=== PATIENT | male | born 1950 | race American Indian/Alaskan Native ===

== ENCOUNTER 2016-09-22 06:25 | Day surgery (SDC) | payer BC ==
[2016-09-15 11:03] VITALS: BMI 40.5
--- NOTE | 2016-09-22 07:14 | CP.SDSHP ---
Same Day Surgery H & P - History Proposed Procedure: Left knee manipulation under anesthesia Pre-Op Diagnosis: left knee arthrofibrosis - Previous Medical/Surgical History Cardiac: Hypertension Comments: medical clearance on chart Previous Surgical History: L TKR 06/23/2016 - Allergies Allergies: Allergies oxycodone HCl [From Percocet] Allergy (Severe, Verified 05/25/16 08:14) ANAPHYLAXIS - Physical Exam Mental Status: Alert & Oriented x3 Heart: WNL Lungs: WNL GI: WNL - {Optional Preform as Required} Ortho: Other (+ROM toes, sensation intact, calves soft NT neg homans) - Impression Impression: Left knee arthrofibrosis for PRAVIN Pt. Evaluated Today:Candidate for Anesthesia & Procedure: Yes Short Stay Discharge - Short Stay Discharge Admitting Diagnosis/Reason for Visit: STIFFNESS / OSTEOARTHRITIS Disposition: HOME/ ROUTINE Past Patient History - Past Medical History & Family History Past Medical History?: Yes - Past Social History Smoking Status: Never Smoked - CARDIAC Hx Cardiac Disorders: Yes (CAD, PTCA, MA) Hx Circulatory Problems: Yes (2009/STENT) Hx Heart Attack: Yes Hx Hypercholesterolemia: Yes Hx Hypertension: Yes Hx Peripheral Edema: Yes Other/Comment: cardiac stent - ENDOCRINE/METABOLIC Hx Endocrine Disorders: Yes Hx Diabetes Mellitus Type 2: Yes - HEMATOLOGICAL/ONCOLOGICAL Hx Blood Transfusions: Yes Hx Blood Transfusion Reaction: No - MUSCULOSKELETAL/RHEUMATOLOGICAL Hx Musculoskeletal Disorders: Yes Hx Arthritis: Yes (R TKR, L THR, L knee scope) Hx Back Pain: Yes Hx Degenerative Joint Disease: Yes Hx Falls: No Hx Fractures: Yes (RT FOOT GREAT TOE/NO SURGERY) Hx Herniated Disk: Yes (CERVICAL/LUMBAR) Hx Osteoarthritis: Yes - SURGICAL HISTORY Hx Surgeries: Yes Hx Arthroscopy: Yes (LEFT KNEE 2003) Hx Cardiac Catheterization: Yes Hx Coronary Stent: Yes Hx Herniorrhaphy: Yes (ABD.) Hx Joint Replacement: Yes (RT. KNEE/LEFT HIP LEFT KNEE) Hx Musculoskeletal Surgery: Yes (EXC. GROWTH LEFT MIDDLE FINGER) Hx Open Reduction Internal Fixation: Yes (LEFT HIP 1965) - ANESTHESIA Hx Anesthesia: Yes Hx Anesthesia Reactions: Yes (INFECTION AFTER SPINAL) Hx Malignant Hyperthermia: No Has any member of the family had a problem w/ anesthesia?: No
[2016-09-22] MEDS ORDERED: Midazolam 2 MG/2 ML VIAL ONE (07:31)
[2016-09-22] MEDS ORDERED: Lactated Ringer's 1,000 ML IV ONE ×3 (07:35→11:00)
[2016-09-22] MEDS ORDERED: Etomidate 20 mg/10ml Inj IV ONE (07:51)
[2016-09-22] MEDS ORDERED: Lactated Ringer's 1,000 ML IV SCH (08:15)
[2016-09-22] MEDS ORDERED: HYDROmorphone 0.5 mg/0.5 ml ISec IVP PRN ×2 (08:19→09:00)
[2016-09-22] MEDS ORDERED: HYDROmorphone 0.5 mg/0.5 ml ISec IVP ONE (09:45)
[2016-09-22 11:32] VITALS: BP 150/68; PULSE 75; RESP 18; TEMP 97; O2SAT 100
--- NOTE | 2016-09-22 11:44 | RAD ---
PROCEDURE: Left Knee Radiographs. HISTORY: Pain. COMPARISON: 06/21/2016 FINDINGS: BONES: Status post total knee replacement. No evidence of prosthesis loosening. No osseous fracture. JOINTS: As above JOINT EFFUSION: None. OTHER FINDINGS: None. IMPRESSION: Left total knee replacement. No acute abnormality.
--- NOTE | 2016-10-02 01:55 | PCM.SURG1 ---
Surgeon's Initial Post Op Note - Surgeon's Notes Surgeon: Sherri Alvarez MD Quality Control Operator: none Type of Anesthesia: General LMA Pre-Operative Diagnosis: Left knee arthrofibrosis/stiffness. after TKA 06/21/16 Operative Findings: Left knee arthrofibrosis/stiffness. after TKA 06/21/16. ROM pre-PRAVIN= 0-100. post-PRAVIN ROM= 0-130 Post-Operative Diagnosis: Left knee arthrofibrosis/stiffness. after TKA 06/21/16 Operation Performed: Left knee PRAVIN Specimen/Specimens Removed: specimen = none. implants= none. touniquet time= 0min. complications= none Estimated Blood Loss: EBL {In ML}: 0 Blood Products Given: N/A Drains Used: No Drains Post-Op Condition: Good Date of Surgery/Procedure: 09/22/16 Time of Surgery/Procedure: 08:00
--- NOTE | 2016-10-02 08:39 | OP ---
PROCEDURE DATE: 09/22/2016 PREOPERATIVE DIAGNOSES: Left knee arthrofibrosis/stiffness status post total knee arthroplasty 06/21/2016. POSTOPERATIVE DIAGNOSES: Left knee arthrofibrosis/stiffness status post total knee arthroplasty 06/21/2016. PROCEDURE: Left knee manipulation under anesthesia. SURGEON: Sherri Alvarez MD LEGAL EXECUTIVE ASSISTANT: None. ANESTHESIA: General LMA anesthesia. RANGE OF MOTION: Pre-PRAVIN = 0-100 degrees. Post-PRAVIN = 0-130 degrees. ESTIMATED BLOOD LOSS: 0 mL. DRAINS: None. IMPLANTS: None. TOURNIQUET TIME: 0 minutes. COMPLICATIONS: None. DRAINS: None. DISPOSITION: The patient was extubated from LMA anesthesia and transferred to PACU in stable condition and tolerated the procedure well. INDICATIONS FOR SURGERY: The patient is a 66-year-old male with a past medical history significant for hypertension, diabetes, coronary artery disease and hypercholesterolemia who underwent left knee total knee arthroplasty on 2016. Surgery was successful without any complications and he tolerated the procedure well. He progressed well with rehabilitation and then discharged to home and followed up in the office and was compliant with his instructions. The patient did admit that he missed a good portion of his physical therapy recommended visits. Initially after being discharged home from the rehab facility, he did not participate in physical therapy for a few weeks, but after multiple discussions in the office and referrals to go to physical therapy 4-5 times a week and explained to him the importance of compliance with physical therapy to maintain his range of motion postoperatively and to have a good outcome, the patient stated that he understood. Following that point at about 6 weeks postoperatively, he began to be more compliant with physical therapy as evidenced by his physical therapy reports sent to the office. At about 10 weeks postoperatively, the patient's range of motion was 0-100 degrees with a firm endpoint. The patient wished to obtain more range of motion and at that point in time we started to discuss the potential benefits of a manipulation under anesthesia. Finally, after thinking about it, the patient came to the office on 09/14/2016 requesting to undergo manipulation under anesthesia as soon as possible to try to regain his range of motion. At that point in time, we discussed the risks, benefits, and alternatives of procedure with the risks including, but not limited to, iatrogenic injury including periprosthetic fracture, need for further procedures, development of chronic pain and disability, development of blood clots including DVT and PE, inability to return to presurgical level of activity, anesthesia reactions and complications. After answering all of his questions, the patient stated they understood the risks and wished to proceed with the procedure. He was referred to his primary care physician, Dr. Sandy Nuno, for evaluation preoperatively before undergoing general anesthesia, and the procedure was scheduled. PROCEDURE IN DETAIL: The patient was identified in the preoperative holding area and the left knee was marked for surgery. Once again, as described above, the risks, benefits, and alternatives of procedure were discussed at length with the patient and informed consent was obtained. After a brief discussion with anesthesia staff, the patient was taken to the operating room and placed in a well-padded operating room table with all bony prominences and superficial neurovascular structures well padded. A final timeout was done with the surgeon , anesthesia staff, and OR staff. All were in agreement with the patient, procedure being done, and extremity being operated on. General anesthesia was administered without difficulty or complication. Examination under anesthesia was then carried out. EXAMINATION UNDER ANESTHESIA: Left knee with no warmth, no swelling, no erythema, skin intact, surgical wound well healed from previous total knee arthroplasty. Range of motion from approximately lacking 2 degrees of full extension to 100 degrees flexion with a firm endpoint. No evidence of instability or mid-flexion instability with a good stable arc of range of motion from extension to flexion. CONTINUATION OF PROCEDURE: The manipulation under anesthesia was then carried out from full extension to full flexion with audible popping of scar tissue and resulting increase of range of motion from 0-130 degrees. We were able to obtain 0 degrees extension compared to the contralateral knee. The left lower extremity was then placed in a compressive Alphonse wrap from the toes up to the superior thigh and then placed in a knee immobilizer for stability and safe ambulation. The patient was then extubated from LMA anesthesia and transferred to PACU in stable condition and tolerated the procedure well. DISPOSITION: The patient will be discharged home once he has recovered from anesthesia. He has been given a prescription for Tylenol #4 for pain medication. He has a prescription for physical therapy to go 5 days a week to maintain his range of motion obtained with the manipulation under anesthesia. He will contact me directly with any questions or concerns. An x-ray was taken in the PACU, which showed no evidence of any iatrogenic injury including fracture or loosening of components. I had a long discussion with the patient both preoperatively and postoperatively explaining the benefits of ambulating with the knee immobilizer initially until he regains his strength just to limit the chances of having an episode of giving out and falling, especially with both of his knees undergoing a total knee arthroplasty in the past. The patient stated that he understood and until he regains his quad function, especially with placement of a regional nerve block by anesthesia staff, he will use the knee immobilizer for ambulation and he will also work on regaining his range of motion as much as possible, including compliance with physical therapy visits 5 days a week. Sherri Alvarez MD cc: [id number] TT: 09/22/2016 08:38:51 jarvis [email or web address]
== END 2016-09-22 11:36 | disposition home or self-care (01) ==
LOC: C.SDS 06:25
PROVIDERS: ATTEND Student in an Organized Health Care Education/Training Program
DX: M25.662 Stiffness of left knee, not elsewhere classified (principal); M17.12 Unilateral primary osteoarthritis, left knee; Z96.652 Presence of left artificial knee joint; M24.662 Ankylosis, left knee
CPT/HCPCS: 27570; 73560; 82948; J1170; J2250; J3010; J7120

== ENCOUNTER 2018-06-19 10:04 | Outpatient (CLI) | payer MEDICARE, BC | END 2018-06-19 10:05 | disposition home or self-care (01) | LOC: C.USIC 10:04 | DX: F17.200 Nicotine dependence, unspecified, uncomplicated (principal) ==